=== PATIENT | male | born 1960 | race African-American/Black ===

== ENCOUNTER 2018-05-09 10:39 | Emergency (ER) | payer SELFPAY ==
[~2018-05-09] VITALS: Ht 172.7 cm; Wt 80.0 kg
[2018-05-09] MEDS ORDERED: SODIUM CHLORIDE 0.9% 1,000 ML IV ONE (11:36)
[2018-05-09 11:56] LABS: CHLORIDE 102 mEq/L (98-107)
[2018-05-09 11:57] LABS: CLARITY URINE CLEAR (CLEAR); KETONES URINE NEGATIVE (NEGATIVE); LEUKOCYTE ESTERASE URINE NEGATIVE (NEGATIVE); NITRITE URINE NEGATIVE (NEGATIVE); OCCULT BLOOD URINE NEGATIVE (NEGATIVE); PROTEIN URINE NEGATIVE (NEGATIVE); SPECIFIC GRAVITY URINE 1.002 (1.005-1.030); UROBILINOGEN URINE 0.2 E.U./dL (0.2-1.0)
[2018-05-09 11:58] LABS: BASOPHILS % 0.5 % (0.0-2.0); EOSINOPHILS % 0.1 % (0.0-5.0); HEMATOCRIT. 41.7 % (42.0-52.0); HEMOGLOBIN. 13.9 g/dL (14.0-18.0); LYMPHOCYTES % 16.6 % (20.0-50.0); MEAN CORPUSCULAR HEMOGLOBIN 34.4 pg (28.0-32.0); MEAN CORPUSCULAR VOLUME 103.1 fL (80.0-94.0); MONOCYTES % 7.2 % (2.0-8.0); NEUTROPHILS % 75.6 % (40.0-76.0); PLATELET 339 x1000/uL (130-400); RED BLOOD CELL COUNT 4.04 mill/uL (4.7-6.1); RED CELL DISTRIBUTION WIDTH 13.3 % (11.6-14.6)
[2018-05-09 12:01] LABS: COLOR URINE PALE YELLOW (YELLOW)
[2018-05-09 12:06] LABS: ETHANOL BLOOD 496 mg/dL
[2018-05-09 12:11] LABS: *AMPHETAMINES SCREEN URINE NEGATIVE (NEGATIVE); *BARBITURATES SCREEN URINE NEGATIVE (NEGATIVE); *BENZODIAZEPINES SCREEN URINE NEGATIVE (NEGATIVE)
[2018-05-09 12:13] LABS: *COCAINE SCREEN URINE NEGATIVE (NEGATIVE); CANNABINOID URINE SCREEN NEGATIVE (NEGATIVE); METHADONE URINE SCREEN NEGATIVE (NEGATIVE); OPIATES URINE SCREEN NEGATIVE (NEGATIVE); PHENCYCLIDINE URINE SCREEN NEGATIVE (NEGATIVE)
[2018-05-09 19:05] VITALS: BP 112/68
== END 2018-05-09 20:00 | disposition home or self-care (01) ==
LOC: EDBD 10:39 → ER 10:39
DX: T51.0X1A Toxic effect of ethanol, accidental (unintentional), initial encounter (principal); F10.229 Alcohol dependence with intoxication, unspecified; R41.82 Altered mental status, unspecified; R09.02 Hypoxemia; R79.89 Other specified abnormal findings of blood chemistry; R53.83 Other fatigue; Y90.8 Blood alcohol level of 240 mg/100 ml or more; Y92.89 Other specified places as the place of occurrence of the external cause
CPT/HCPCS: 36415; 70450; 71045; 80053; 80305; 81003; 83880; 84484; 85025; 99284; G0482; J7030; A4315